=== PATIENT | male | born 1980 | race Caucasian/White ===

== ENCOUNTER 2016-08-03 23:35 | Emergency (ER) | payer SELFPAY ==
[~2016-08-03] VITALS: Ht 177.8 cm; Wt 81.6 kg
[~2016-08-03 23:35] MED LIST: LORAZEPAM INJ 2 MG/ML VIAL ONE
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
[2016-08-04] MEDS ORDERED: HALOPERIDOL LACTATE INJ 5 MG/ML VIAL IM ONE
[2016-08-04] MEDS ORDERED: LORAZEPAM INJ 2 MG/ML VIAL IM ONE
[2016-08-04] MEDS ORDERED: diphenhydrAMINE HCL 50 MG/ML VIAL IM ONE
--- NOTE | 2016-08-04 00:12 | NUR ---
pt to ct via [facility]
--- NOTE | 2016-08-04 00:30 | NUR ---
PT RETURN FROM CT.
--- NOTE | 2016-08-04 04:24 | NUR ---
PT SLEEPING IN RLACHINE. NO SIGNS OF DISTRESS NOTED. PT VITAL SIGNS STABLE. BREATHS EQUAL AND UNLABORED. WILL CONT TO MONITOR PT.
--- NOTE | 2016-08-04 09:00 | NUR ---
DROWSY, EASILY AROUSABLE, WAITING TO SOBER UP
[2016-08-04 20:08] VITALS: BP 105/64
== END 2016-08-04 20:09 | disposition home or self-care (01) ==
LOC: ER 23:39
DX: S09.90XA Unspecified injury of head, initial encounter (principal); S00.83XA Contusion of other part of head, initial encounter; S00.31XA Abrasion of nose, initial encounter; F10.129 Alcohol abuse with intoxication, unspecified; X58.XXXA Exposure to other specified factors, initial encounter; Y93.89 Activity, other specified; Y92.89 Other specified places as the place of occurrence of the external cause; Y99.9 Unspecified external cause status
CPT/HCPCS: 70450-TC; 70486-TC; 72125-TC; A4606; J2060; Z7610